=== PATIENT | female | born 1975 | race Two or more races ===

== ENCOUNTER 2023-12-03 04:17 | Day surgery (SDC) | payer OTHER ==
[2023-12-01 12:16] VITALS: BMI 27.7
[2023-12-03] MEDS ORDERED: DEXAMETHASONE SOD PHOSPHATE 10 MG/1 ML VIAL ONE (07:32)
[2023-12-03] MEDS ORDERED: LIDOCAINE HCL/PF 1% SDV 5ML VIAL ONE (07:32)
[2023-12-03] MEDS ORDERED: ACETAMINOPHEN 500 MG TABLET (FP) PO PRN (13:24)
[2023-12-03] MEDS: LIDOCAINE HCL 1% PRESERVATIVE FREE - 30ML VIAL IJ ONE (13:53)
[2023-12-03] MEDS: DEXAMETHASONE SOD PHOSPHATE 20 MG/5 ML VIAL IM ONE (13:54)
[2023-12-03] MEDS: IOHEXOL 180 MG/1 ML ML IJ ONE (13:55)
[2023-12-03 14:17] VITALS: RESP 20
[2023-12-03 14:52] VITALS: BP 157/79; PULSE 78; TEMP 98
== END 2023-12-03 14:52 | disposition home or self-care (01) ==
LOC: JASU-SURG 04:17
PROVIDERS: ATTEND Pain Medicine Pain Medicine
PROC: 3E0R3BZ Introduction of Anesthetic Agent into Spinal Canal, Percutaneous Approach (ICD-10-PCS; 2023-12-03)
PROC: 3E0R33Z Introduction of Anti-inflammatory into Spinal Canal, Percutaneous Approach (ICD-10-PCS; principal; 2023-12-03 13:45)
DX: M48.061 Spinal stenosis, lumbar region without neurogenic claudication (principal); M54.16 Radiculopathy, lumbar region
CPT/HCPCS: 76000-TC-FY; 81025; J1100

== ENCOUNTER 2024-05-11 07:20 | Day surgery (SDC) | payer OTHER ==
[2024-05-11] MEDS ORDERED: MAG HYDROX/AL HYDROX/SIMETH 30 ML UNIT-DOSE CUP ONE (08:27)
[2024-05-11] MEDS ORDERED: ONDANSETRON 4 MG/2 ML VIAL ONE (08:27)
[2024-05-11] MEDS ORDERED: ACETAMINOPHEN 325 MG TABLET (FP) ONE (08:27)
[2024-05-11] MEDS ORDERED: FAMOTIDINE 20 MG/50 ML IVPB 20 MG/50 ML MG IVPB ONE (08:27)
[2024-05-11] MEDS: MAG HYDROX/AL HYDROX/SIMETH 30 ML UNIT-DOSE CUP PO ONE (09:16)
[2024-05-11] MEDS: ACETAMINOPHEN 325 MG TABLET (FP) PO ONE (09:16)
[2024-05-11 09:39] LABS: BASO % 0.8 % (0-2.0); HEMATOCRIT 37.7 % (32.4-45.2); HEMOGLOBIN 12.1 GM/dL (10.7-15.3); MCH 28.2 pg (25.7-33.7); MEAN PLT VOLUME 8.5 fl (7.5-11.1); MONO % 7.4 % (3.8-10.2); NEUT % 86.8 % (42.8-82.8); PLATELET COUNT 362 10^3/uL (134-434); RBC 4.28 M/mm3 (3.60-5.2); RDW 13.3 % (11.6-15.6); WHITE BLOOD COUNT 17.3 K/mm3 (4.0-10.0)
[2024-05-11 09:40] LABS: INR 1.1 (0.83-1.09); PROTHROMBIN TIME (PATIENT) 12.4 SEC (9.7-13.0)
[2024-05-11 09:43] LABS: ACTIVATED PTT 30.1 SECONDS (25.2-36.5)
[2024-05-11 10:01] LABS: POTASSIUM 3.7 mmol/L (3.5-5.1)
[2024-05-11 10:03] LABS: CALCIUM 8.9 mg/dL (8.5-10.1)
[2024-05-11 10:04] LABS: ALBUMIN 3.8 g/dl (3.4-5.0); BLOOD UREA NITROGEN 10.4 mg/dL (7-18)
[2024-05-11 10:08] LABS: BILIRUBIN,TOTAL 0.4 mg/dL (0.2-1); TOT PROT 7.8 g/dl (6.4-8.2)
[2024-05-11 11:13] LABS: URINE APPEARANCE CLEAR; URINE BILIRUBIN NEGATIVE (NEGATIVE); URINE COLOR YELLOW; URINE GLUCOSE (UA) NEGATIVE (NEGATIVE); URINE KETONE TRACE (NEGATIVE); URINE LEUK ESTERASE NEGATIVE (NEGATIVE); URINE NITRITE NEGATIVE (NEGATIVE); URINE PROTEIN NEGATIVE (NEGATIVE); URINE UROBILINOGEN 0.2 mg/dL (0.2-1.0)
[2024-05-11 11:51] LABS: EPI CELLS 15.2 /uL (0-25.1); HYALINE CASTS 0 /uL (0-3.1); URINE BACTERIA 209.7 /uL (0-1359); URINE RBC 40.1 /uL (0-23.9); URINE WBC 7.8 /uL (0-25.8)
[2024-05-11] MEDS ORDERED: CEFTRIAXONE 1 GM/50 ML BAG ONE (12:04)
[2024-05-11] MEDS: FAMOTIDINE 20 MG/50 ML IVPB 20 MG/50 ML MG IVPB ONE (12:11)
[2024-05-11] MEDS: CEFTRIAXONE 1 GM in DEXTROSE 5%-WATER - 100 ML IVPB ONE (12:11)
[2024-05-11] MEDS: ONDANSETRON 4 MG/2 ML VIAL IVPB ONE (12:11)
[2024-05-11] MEDS ORDERED: ONDANSETRON 4 MG/2 ML VIAL IVPUSH PRN (15:59)
[2024-05-11] MEDS: DEXTROSE 5%-0.45% SALINE 1,000 ML IV SCH (17:52)
[2024-05-11] MEDS: PIPERACILLIN/TAZOB 3.375 GM 50 ML IVPB SCH (18:15)
[2024-05-11 18:33] VITALS: BMI 26.6
[2024-05-12] MEDS: ACETAMINOPHEN 1000 MG/100 ML BAG IVPB ONE (03:40)
[2024-05-12] MEDS ORDERED: ROCURONIUM BROMIDE 50 MG/5 ML SYRINGE ONE (08:43)
[2024-05-12] MEDS ORDERED: PROPOFOL 20 ML ONE (08:43)
[2024-05-12] MEDS ORDERED: MIDAZOLAM HCL 2 MG/2 ML SINGLE DOSE VIAL ONE (08:43)
[2024-05-12 09:19] LABS: BASO % 0.2 % (0-2.0); EOS % 0.1 % (0-4.5); HEMATOCRIT 35.2 % (32.4-45.2); HEMOGLOBIN 11.6 GM/dL (10.7-15.3); LYMPH % 8.2 % (8-40); MCH 28.8 pg (25.7-33.7); MEAN CELL VOLUME 87.3 fl (80-96); MEAN PLT VOLUME 8.3 fl (7.5-11.1); NEUT % 82.5 % (42.8-82.8); PLATELET COUNT 372 10^3/uL (134-434); RBC 4.04 M/mm3 (3.60-5.2); RDW 13.4 % (11.6-15.6); WHITE BLOOD COUNT 19.8 K/mm3 (4.0-10.0)
[2024-05-12 09:40] LABS: POTASSIUM 3.3 mmol/L (3.5-5.1)
[2024-05-12 09:42] LABS: ALBUMIN 3.3 g/dl (3.4-5.0); CALCIUM 8.5 mg/dL (8.5-10.1)
[2024-05-12 09:43] LABS: BLOOD UREA NITROGEN 7.1 mg/dL (7-18)
[2024-05-12 09:46] LABS: CREATININE 1.1 mg/dL (0.55-1.3)
[2024-05-12 09:47] LABS: BILIRUBIN,TOTAL 0.7 mg/dL (0.2-1); TOT PROT 7.2 g/dl (6.4-8.2)
[2024-05-12] MEDS: PIPERACILLIN/TAZOBACTAM 3.375 GM VIAL IVPB ONE (11:15)
[2024-05-12] MEDS ORDERED: INDOCYANINE GREEN 25 MG/10 ML VIAL IVPUSH ONE (11:26)
[2024-05-12] MEDS: BUPIVACAINE HCL/PF 0.25% (2.5MG/ML) 10 ML VIAL IJ ONE (11:39)
[2024-05-12] MEDS ORDERED: ONDANSETRON 4 MG/2 ML VIAL IVPUSH PRN (14:21)
[2024-05-12] MEDS ORDERED: oxyCODONE HCL 5 MG TABLET PO PRN (14:21)
[2024-05-12] MEDS: DEXTROSE 5%-0.45% SALINE 1,000 ML IV SCH (14:59)
[2024-05-12] MEDS: KCL 10 MEQ IVPB 10 MEQ/100 ML INFUS.BAG IVPB SCH ×3 (15:04→16:48)
[2024-05-12] MEDS: PIPERACILLIN/TAZOB 3.375 GM 50 ML IVPB SCH ×3 (15:46→18:35)
[2024-05-12] MEDS: LACTATED RINGERS SOLUTION 1,000 ML IV SCH (15:47)
[2024-05-12] MEDS: DOCUSATE SODIUM 100 MG CAPSULE (FP) PO SCH (15:55)
[2024-05-12] MEDS: POTASSIUM CHLORIDE TABS 20 MEQ TABLET.ER (FP) PO ONE (15:55)
[2024-05-12] MEDS ORDERED: PIPERACILLIN/TAZOB 3.375 GM 3.375 GM in DEXTROSE 5%-WATER - 50 ML IVPB SCH (18:00)
[2024-05-12] MEDS: ACETAMINOPHEN 1000 MG/100 ML BAG IVPB SCH (21:52)
[2024-05-13 07:29] LABS: BASO % 0.3 % (0-2.0); HEMATOCRIT 31.3 % (32.4-45.2); HEMOGLOBIN 10.1 GM/dL (10.7-15.3); LYMPH % 5.9 % (8-40); MCH 28.6 pg (25.7-33.7); MCHC 32.2 g/dl (32.0-36.0); MEAN CELL VOLUME 88.6 fl (80-96); MEAN PLT VOLUME 8.1 fl (7.5-11.1); MONO % 7.3 % (3.8-10.2); NEUT % 86.5 % (42.8-82.8); PLATELET COUNT 305 10^3/uL (134-434); RBC 3.54 M/mm3 (3.60-5.2); RDW 13.2 % (11.6-15.6); WHITE BLOOD COUNT 19.2 K/mm3 (4.0-10.0)
[2024-05-13 07:48] LABS: POTASSIUM 3.2 mmol/L (3.5-5.1)
[2024-05-13 07:52] LABS: ALBUMIN 2.6 g/dl (3.4-5.0); CALCIUM 8.2 mg/dL (8.5-10.1)
[2024-05-13 07:54] LABS: BLOOD UREA NITROGEN 7.4 mg/dL (7-18)
[2024-05-13 07:57] LABS: CREATININE 0.8 mg/dL (0.55-1.3)
[2024-05-13 07:58] LABS: BILIRUBIN,TOTAL 0.5 mg/dL (0.2-1); TOT PROT 5.9 g/dl (6.4-8.2)
[2024-05-13] MEDS ORDERED: ACETAMINOPHEN 500 MG TABLET (FP) PO PRN (14:00)
[2024-05-13] MEDS: oxyCODONE HCL 5 MG TABLET PO PRN (17:58)
[2024-05-13] MEDS: KETOROLAC TROMETHAMINE 30 MG/1 ML VIAL IVPUSH PRN (22:50)
[2024-05-14 09:13] LABS: BASO % 0.7 % (0-2.0); EOS % 5.6 % (0-4.5); HEMATOCRIT 29.1 % (32.4-45.2); HEMOGLOBIN 9.4 GM/dL (10.7-15.3); LYMPH % 19.3 % (8-40); MCH 28.6 pg (25.7-33.7); MCHC 32.3 g/dl (32.0-36.0); MEAN CELL VOLUME 88.8 fl (80-96); MEAN PLT VOLUME 8.5 fl (7.5-11.1); MONO % 6.4 % (3.8-10.2); PLATELET COUNT 298 10^3/uL (134-434); RBC 3.27 M/mm3 (3.60-5.2); RDW 13.6 % (11.6-15.6); WHITE BLOOD COUNT 9.8 K/mm3 (4.0-10.0)
[2024-05-14 09:15] LABS: POTASSIUM 3.1 mmol/L (3.5-5.1)
[2024-05-14 09:21] LABS: ALBUMIN 2.3 g/dl (3.4-5.0); BLOOD UREA NITROGEN 7.2 mg/dL (7-18)
[2024-05-14 09:25] LABS: CREATININE 0.7 mg/dL (0.55-1.3)
[2024-05-14 09:26] LABS: BILIRUBIN,TOTAL 0.4 mg/dL (0.2-1); TOT PROT 5.3 g/dl (6.4-8.2)
[2024-05-14] MEDS: POTASSIUM CHLORIDE ORAL LIQUID 20 MEQ/15 ML PO ONE (13:16)
[2024-05-14] MEDS: KCL 10 MEQ IVPB 10 MEQ/100 ML INFUS.BAG IVPB SCH (13:17)
[2024-05-14 14:27] VITALS: BP 147/95; PULSE 84; RESP 20; TEMP 98.4
== END 2024-05-14 16:07 | disposition home or self-care (01) ==
LOC: JER 07:20 → JERBED 12:13 → UNDOADMOB 12:13 → JERBED 14:16 → J7W 14:16 → OBSVTOIN 15:57 → INTOOBSV 15:57 → JASUSAT 05-12 12:17 → J7W 05-12 12:28 → JASUSAT 05-14 16:07
PROVIDERS: ATTEND Internal Medicine
PROC: 3E03329 Introduction of Other Anti-infective into Peripheral Vein, Percutaneous Approach (ICD-10-PCS; principal; 2024-05-11)
PROC: 3E033GC Introduction of Other Therapeutic Substance into Peripheral Vein, Percutaneous Approach (ICD-10-PCS; 2024-05-11)
PROC: 3E033GC Introduction of Other Therapeutic Substance into Peripheral Vein, Percutaneous Approach (ICD-10-PCS; 2024-05-11)
PROC: 3E033NZ Introduction of Analgesics, Hypnotics, Sedatives into Peripheral Vein, Percutaneous Approach (ICD-10-PCS; 2024-05-11)
DX: R10.11 Right upper quadrant pain (principal); K81.9 Cholecystitis, unspecified; R11.10 Vomiting, unspecified
CPT/HCPCS: 36415; 76705-TC; 80053; 81003; 83690; 84484; 84703; 85025; 85610; 85730; 86850; 86900; 86901; 87086; 87186; 88304-TC; 93005; 93010; 94760; 99285-25; G0378; J0131

== ENCOUNTER 2024-09-21 07:29 | Day surgery (SDC) | payer OTHER ==
[2024-09-19 14:45] VITALS: BMI 12.6
[2024-09-21] MEDS ORDERED: ACETAMINOPHEN 500 MG TABLET (FP) PO PRN (08:59)
[2024-09-21] MEDS: LIDOCAINE HCL 1% PRESERVATIVE FREE - 30ML VIAL IJ ONE ×2 (12:00)
[2024-09-21] MEDS: DEXAMETHASONE SOD PHOSPHATE 10 MG/1 ML VIAL IVPUSH ONE ×2 (12:07)
[2024-09-21] MEDS: IOHEXOL 180 MG/1 ML ML IJ ONE ×2 (12:07)
[2024-09-21 15:40] VITALS: RESP 18
[2024-09-21 15:42] VITALS: BP 118/79; PULSE 68; TEMP 97.8
== END 2024-09-21 13:07 | disposition home or self-care (01) ==
LOC: JASU-SURG 07:29
PROVIDERS: ATTEND Pain Medicine Pain Medicine
PROC: 3E0R3BZ Introduction of Anesthetic Agent into Spinal Canal, Percutaneous Approach (ICD-10-PCS; 2024-09-21)
PROC: 3E0R33Z Introduction of Anti-inflammatory into Spinal Canal, Percutaneous Approach (ICD-10-PCS; principal; 2024-09-21 12:45)
DX: M54.16 Radiculopathy, lumbar region (principal)
CPT/HCPCS: 76000-TC-FY; 81025; J1100

== ENCOUNTER 2025-04-20 17:08 | Emergency (ER) | payer OTHER ==
[2025-04-20 17:15] VITALS: BP 129/94; PULSE 76; RESP 20; TEMP 98.2; BMI 27.4
[2025-04-20] MEDS ORDERED: IBUPROFEN 600 MG TABLET (FP) PO ONE (18:26)
[2025-04-20] MEDS ORDERED: ACETAMINOPHEN 500 MG TABLET (FP) ONE (18:26)
[2025-04-20] MEDS ORDERED: LIDOCAINE 4% PATCH TP ONE (18:26)
[2025-04-20] MEDS: LIDOCAINE 4% PATCH TP ONE (18:35)
[2025-04-20] MEDS: IBUPROFEN 600 MG TABLET (FP) PO ONE (18:35)
[2025-04-20] MEDS: ACETAMINOPHEN 500 MG TABLET (FP) PO ONE (18:36)
== END 2025-04-20 19:29 | disposition home or self-care (01) ==
LOC: JERFT 17:08
DX: M54.50 Low back pain, unspecified (principal); V79.40XA Driver of bus injured in collision with unspecified motor vehicles in traffic accident, initial encounter; Y92.410 Unspecified street and highway as the place of occurrence of the external cause
CPT/HCPCS: 72100-TC-FY; 99283-25